=== PATIENT | female | born 1965 | race Caucasian/White ===

== ENCOUNTER 2022-04-29 05:35 | Emergency (ER) | payer MEDICAID, OTHER ==
[~2022-04-29] VITALS: Ht 157.5 cm; Wt 90.7 kg
[2022-04-29 05:50] VITALS: BP 144/73
--- NOTE | 2022-04-29 06:00 | NUR ---
TO BED 11
[2022-04-29 06:14] VITALS: BP 144/73
--- NOTE | 2022-04-29 06:14 | NUR ---
57/F BIB SELF C/C CONGESTION X1DAY +COUGH +RUNNY NOSE +SORE THROAT. PATIENT DENIES FEVER/SOB/CHILLS/V/N/D/C. PATIENT PLACED IN BED AND MONITOR. BED LOW AND LOCKED. ALL NEEDS MET. DENIES PMHX, RX, ALLERGIES
[2022-04-29] MEDS ORDERED: TAM75 PO (07:13)
[2022-04-29] MEDS ORDERED: ROB PO (07:14)
--- NOTE | 2022-04-29 07:15 | NUR ---
REPORT GIVEN TO CHARLES PRATT. TRANSFER OF CARE.
--- NOTE | 2022-04-29 07:15 | NUR ---
Patient discharged with v/s stable. Written and verbal after care instructions given and explained. Patient alert, oriented and verbalized understanding of instructions. Ambulatory with steady gait. All questions addressed prior to discharge. ID band removed. Patient advised to follow up with PMD. Rx of TAMIFLU, ROBITUSSIN given. Patient educated on indication of medication including possible reaction and side effects. Opportunity to ask questions provided and answered.
[2022-04-30] MEDS ORDERED: TAM75 PO (09:55)
[2022-04-30] MEDS ORDERED: ROB PO (09:55)
== END 2022-04-29 07:15 | disposition home or self-care (01) ==
LOC: MED 05:35
DX: J10.1 Influenza due to other identified influenza virus with other respiratory manifestations (principal)
CPT/HCPCS: 99283

== ENCOUNTER 2022-07-30 05:50 | Emergency (ER) | payer OTHER ==
[~2022-07-30] VITALS: Ht 157.5 cm; Wt 89.4 kg
[~2022-07-30 05:50] MED LIST: ROB PO; TAM75 PO
[2022-07-30 06:12] VITALS: BP 154/96
--- NOTE | 2022-07-30 06:14 | NUR ---
pt to chc
--- NOTE | 2022-07-30 06:15 | NUR ---
pt to bed 11
--- NOTE | 2022-07-30 06:27 | NUR ---
Patient resting in bed, A/Ox4, chest rise and fall symmetrical, no s/s of distress, patient on monitor.
--- NOTE | 2022-07-30 07:27 | NUR ---
Change of shift report given to AM shift Nurse Gail SOTO. AM shift Nurse Gail RN verbalized understanding of report, no further questions.
[2022-07-30] MEDS ORDERED: BENZ200C4 PO (07:57)
--- NOTE | 2022-07-30 07:58 | NUR ---
ASSUMED PATIENT CARE, CONCUR WITH PRIOR NURSING ASSESSMENTS.
[2022-07-30 08:10] VITALS: BP 152/89
--- NOTE | 2022-07-30 08:11 | NUR ---
DISPO AND MEDICAL DECISION MAKING, DC HOME WITH E-RX AND AFTERCARE INSTRUCTIONS RE: URI, VIRAL. ALL INSTRUCTIONS UNDERSTOOD BY PATIENT WELL, VS WNL, NO DISTRESS. DC HOME AMBULATORY.
== END 2022-07-30 08:10 | disposition home or self-care (01) ==
LOC: MED 05:50
DX: J06.9 Acute upper respiratory infection, unspecified (principal); B34.9 Viral infection, unspecified; Z20.822 Contact with and (suspected) exposure to COVID-19; Z79.899 Other long term (current) drug therapy
CPT/HCPCS: 99283

== ENCOUNTER 2022-10-15 04:15 | Emergency (ER) | payer OTHER ==
[~2022-10-15] VITALS: Ht 157.5 cm; Wt 86.2 kg
[~2022-10-15 04:15] MED LIST changes: +BENZ200C4 PO
[2022-10-15 04:31] VITALS: BP 151/77
--- NOTE | 2022-10-15 04:40 | NUR ---
PT TO BED 8
--- NOTE | 2022-10-15 04:52 | NUR ---
REPORT FR ENG RN , PT C/O LT WRIST JEN N S/ FALL TRYING TO BREAK A FALL,LT WRIST SWOLLEN , + PCMS
[2022-10-15] MEDS ORDERED: HYDROcodone/APAP 5/325 MG 1 TAB TAB PO ONE (05:10)
[2022-10-15] MEDS ORDERED: KETOROLAC 30 MG/ML VIAL IM ONE (05:10)
[2022-10-15] MEDS ORDERED: ACET-8905 PO (05:11)
[2022-10-15] MEDS ORDERED: NAPR-54 PO (05:11)
--- NOTE | 2022-10-15 05:56 | NUR ---
Patient discharged with v/s stable. Written and verbal after care instructions given and explained. Patient verbalized understanding. Ambulatory with steady gait. All questions addressed prior to discharge. Advised to follow up with PMD.
== END 2022-10-15 05:56 | disposition home or self-care (01) ==
LOC: MED 04:15
DX: S52.592A Other fractures of lower end of left radius, initial encounter for closed fracture (principal); W01.0XXA Fall on same level from slipping, tripping and stumbling without subsequent striking against object, initial encounter; Y93.89 Activity, other specified; Y92.89 Other specified places as the place of occurrence of the external cause; Y99.8 Other external cause status
CPT/HCPCS: 29125; 73110; 96372; 99283; J1885; Q0092

== ENCOUNTER 2023-05-04 09:13 | Emergency (ER) | payer OTHER ==
[~2023-05-04] VITALS: Ht 162.6 cm; Wt 72.6 kg
[~2023-05-04 09:13] MED LIST changes: +ACET-8905 PO; +NAPR-54 PO
[2023-05-04 09:24] VITALS: BP 133/77; PULSE 84; RESP 18; TEMP 97; O2SAT 98
[2023-05-04 10:27] LABS: APPEARANCE,URINE CLEAR (CLEAR); BILIRUBIN,URINE NEGATIVE (NEGATIVE); BLOOD, URINE TRACE-I (NEGATIVE); COLOR,URINE YELLOW (YELLOW); LEUKOCYTE ESTERASE ,URINE NEGATIVE (NEGATIVE); NITRITE, URINE NEGATIVE (NEGATIVE); PH,URINE 7.5 (5.0-9.0); PROTEIN,URINE NEGATIVE (NEGATIVE); UGLUCOSE NEGATIVE (NEGATIVE); UROBILINOGEN,URINE 0.2 EU/dL (0.2 - 1)
[2023-05-04 10:44] LABS: BASOPHILS % (AUTO) 0.5 % (0.0-2.0); EOSINOPHILS # (AUTO) 0.1 K/uL (0-0.4); EOSINOPHILS % (AUTO) 0.8 % (0.0-4.0); HEMATOCRIT 39.4 % (36-48); HEMOGLOBIN 12.8 g/dL (12.0-16.0); LYMPHOCYTES # (AUTO) 3.2 K/uL (2.5-16.5); LYMPHOCYTES % (AUTO) 39.3 % (20.5-51.1); MEAN CORPUSCULAR HEMOGLOBIN 27 pg (27-31); MEAN CORPUSCULAR HGB CONC 33 g/dL (33-37); MEAN CORPUSCULAR VOLUME 83.5 fL (80-94); MONOCYTES # (AUTO) 1.2 K/uL (0.8-1.0); MONOCYTES % (AUTO) 14.2 % (1.7-9.3); NEUTROPHILS # (AUTO) 3.7 K/uL (1.8-7.7); NEUTROPHILS % (AUTO) 45.2 % (42.2-75.2); PLATELET COUNT (AUTO) 314 K/uL (140-450); RED BLOOD CELL COUNT(AUTO) 4.72 MIL/uL (4.20-5.40); RED CELL DISTRIBUTION WIDTH 14.5 % (11.6-13.7); WHITE BLOOD COUNT (AUTO) 8.2 K/uL (4.8-10.8)
[2023-05-04 11:03] LABS: ANION GAP 8.7 (8-16); CALCIUM 8.8 mg/dL (8.5-10.1); CARBON DIOXIDE 33.1 mmol/L (21-32); CREATININE 0.8 mg/dL (0.6-1.3); POTASSIUM 3.8 mmol/L (3.5-5.1)
[2023-05-04 11:11] LABS: ALBUMIN 3.1 g/dL (3.4-5.0); BILIRUBIN,DIRECT 0.1 mg/dL (0.0-0.3); TOTAL BILIRUBIN 0.3 mg/dL (0.0-1.0); TOTAL PROTEIN, SERUM 7.7 g/dL (6.4-8.2)
[2023-05-04] MEDS ORDERED: METOCLOPRAMIDE 10 MG TAB PO ONE (11:20)
[2023-05-04] MEDS ORDERED: DICYCLOMINE HCL LIQUID 10 MG/5 ML UDC PO ONE (11:20)
[2023-05-04] MEDS ORDERED: LOPE2TAB52 PO (13:12)
[2023-05-04] MEDS ORDERED: BEN10 PO (13:12)
[2023-05-04] MEDS ORDERED: CIPR500T4 PO (13:12)
[2023-05-04] MEDS ORDERED: ACET-10509 PO (13:12)
[2023-05-04 13:16] VITALS: BP 133/77; PULSE 84; RESP 18; TEMP 97; O2SAT 98
== END 2023-05-04 13:16 | disposition home or self-care (01) ==
LOC: MED 09:13
DX: R19.7 Diarrhea, unspecified (principal); Z79.899 Other long term (current) drug therapy; Z79.1 Long term (current) use of non-steroidal anti-inflammatories (NSAID); Z79.2 Long term (current) use of antibiotics
CPT/HCPCS: 36415; 80048; 80076; 81003; 83690; 85025; 99283; J8597

== ENCOUNTER 2024-03-11 11:15 | Emergency (ER) | payer OTHER ==
[~2024-03-11] VITALS: Ht 160 cm; Wt 93.9 kg
[~2024-03-11 11:15] MED LIST changes: +ACET500T99 PO; +BEN10 PO; +CIPR500T4 PO; +LOPE2TAB52 PO; +NAPR-337 PO; -NAPR-54 PO
[2024-03-11 11:34] VITALS: BP 148/95; PULSE 84; RESP 19; TEMP 97.8; O2SAT 95
[2024-03-11 12:04] VITALS: O2SAT 95
[2024-03-11] MEDS: PSEUDOEPHEDRINE 30 MG TAB PO ONE (12:17)
[2024-03-11] MEDS: ACETAMINOPHEN EXTRA STRENGTH 500 MG TAB PO ONE (12:19)
[2024-03-11] MEDS ORDERED: IBUP-1842 PO (12:20)
[2024-03-11] MEDS: KETOROLAC 30 MG/ML VIAL IM ONE (12:20)
[2024-03-11] MEDS ORDERED: SUD30 PO (12:22)
[2024-03-11 13:21] LABS: FLU A ANTIGEN negative (NEGATIVE); FLU B ANTIGEN NEGATIVE (NEGATIVE)
== END 2024-03-11 12:43 | disposition home or self-care (01) ==
LOC: MED 11:15
DX: J06.9 Acute upper respiratory infection, unspecified (principal); R03.0 Elevated blood-pressure reading, without diagnosis of hypertension; Z20.822 Contact with and (suspected) exposure to COVID-19; Z79.899 Other long term (current) drug therapy
CPT/HCPCS: 87426; 87804; 96372; 99283; J1885